=== PATIENT | female | born 1960 | race Caucasian/White ===

== ENCOUNTER 2020-11-23 10:44 | Emergency (ER) | payer MEDICARE ==
[~2020-11-23] VITALS: Ht 167.6 cm; Wt 65.9 kg
--- NOTE | 2020-11-23 10:47 | PHYS DOC ---
Past History Past Medical History: Hypertension, [place] Smoking: Cigarettes Adult General Chief Complaint Chief Complaint: CHEST PAIN HPI HPI Patient is a 60-year-old female presenting for chest pain. This is an ongoing issue. Reports left-sided chest pressure that sometimes radiates to throat. Has history of indigestion but states this feels different. Timing of symptoms is infrequent, no known exacerbation with physical activity or p.o. intake. Reports approximately 1 week ago having increased frequency of said events. States events are self-limiting and usually resolve within minutes to an hour at most. Reports event yesterday took her breath away which concerned her as she has prior LA approximately 10 years ago that did not require any intervention. She is on 81 mg aspirin daily, smokes cigarettes, denies any other family history of early cardiac disease. No fever, chills, hemoptysis or productive cough, abdominal pain, urinary symptoms Review of Systems Review of Systems Fourteen body systems of review of systems have been reviewed. See HPI for pertinent positives and negative responses, other valdez all other systems are negative, non-pertinent or non-contributory Physical Exam Physical Exam Constitutional: Well developed, well nourished, no acute distress, non-toxic appearance. HENT: Normocephalic, atraumatic, bilateral external ears normal, oropharynx moist, no oral exudates, nose normal. Eyes: PERRLA, EOMI, conjunctiva normal, no discharge. Neck: Normal range of motion, no tenderness, supple, no stridor. Cardiovascular: Heart rate regular, sinus rhythm, no murmurs rubs or gallops Lungs & Thorax: Bilateral breath sounds clear to auscultation Abdomen: Bowel sounds normal, soft, no tenderness, no masses, no pulsatile masses. Nonsurgical abdomen, no peritoneal signs Skin: Warm, dry, no erythema, no rash. Back: No tenderness, no CVA tenderness. Extremities: No tenderness, no cyanosis, no clubbing, ROM intact, no edema. Neurologic: Alert and oriented X 3, grossly normal motor & sensory function, no focal deficits noted. Psychologic: Affect normal, judgement normal, mood normal. Current Patient Data Vital Signs Vital Signs Date Time Temp Pulse Resp B/P (MAP) Pulse Ox O2 Delivery O2 Flow Rate FiO2 11/23/20 10:46 98.1 89 19 141/81 (101) 100 Room Air Vital Signs Date Time Temp Pulse Resp B/P (MAP) Pulse Ox O2 Delivery O2 Flow Rate FiO2 11/23/20 10:46 98.1 89 19 141/81 (101) 100 Room Air Lab Results Laboratory Tests Test 11/23/20 10:52 White Blood Count 11.6 x10^3/uL Red Blood Count 4.76 x10^6/uL Hemoglobin 13.9 g/dL Hematocrit 42.4 % Mean Corpuscular Volume 89 fL Mean Corpuscular Hemoglobin 29 pg Mean Corpuscular Hemoglobin Concent 33 g/dL Red Cell Distribution Width 13.0 % Platelet Count 270 x10^3/uL Neutrophils (%) (Auto) 62 % Lymphocytes (%) (Auto) 28 % Monocytes (%) (Auto) 8 % Eosinophils (%) (Auto) 1 % Basophils (%) (Auto) 1 % Neutrophils # (Auto) 7.2 x10^3uL Lymphocytes # (Auto) 3.2 x10^3/uL Monocytes # (Auto) 1.0 x10^3/uL Eosinophils # (Auto) 0.1 x10^3/uL Basophils # (Auto) 0.1 x10^3/uL Sodium Level 139 mmol/L Potassium Level 3.5 mmol/L Chloride Level 102 mmol/L Carbon Dioxide Level 26 mmol/L Anion Gap 11 Blood Urea Nitrogen 14 mg/dL Creatinine 0.8 mg/dL Estimated GFR (Cockcroft-Gault) 73.2 Glucose Level 102 mg/dL Calcium Level 9.3 mg/dL Troponin I Quantitative < 0.017 ng/mL Current Medications Medications (Trade) Dose Ordered Sig/Rekha Route PRN Reason Start Time Stop Time Status Last Admin Dose Admin Aspirin (Aspirin Chewable) 162 mg 1X ONCE PO 11/23/20 11:00 11/23/20 11:15 DC 11/23/20 11:07 EKG EKG EKG ordered and interpreted by myself at 1054 hrs. sinus rhythm at 93 bpm, QTC 460 otherwise unremarkable intervals, no axis deviation, no acute ischemic findings, no STEMI Repeat EKG ordered and interpreted by myself at 1132 hrs. as sinus rhythm at 77 bpm, unremarkable intervals, no axis deviation, no acute ischemic findings Radiology/Procedures Radiology/Procedures AP chest. HISTORY: Chest pain AP view was taken of the chest. There is no prior study for comparison. There is density along the left heart border possibly epicardial fat pad or scarring or atelectasis or infiltrate. Heart is normal in size. There is no pleural effusion. No other infiltrate is noted. PA and lateral views could be of benefit. IMPRESSION: 1. Density along the left heart border from an epicardial fat pad or atelectasis or infiltrate. 2. No other acute infiltrates. Electronically signed by: Sukumar Butts MD (11/23/2020 11:15 AM) [id number] Heart Score C/O Chest Pain: Yes HEART Score for Chest Pain: HEART Score for Chest Pain Response (Comments) Value History Moderately Suspicious 1 ECG Normal 0 Age >45 - < 65 1 Risk Factors >3 Risk Factors or Hx CAD 2 Troponin < Normal Limit 0 Total 4 Risk Factors: Risk Factors: DM, Current or recent (<one month) smoker, HTN, HLP, family history of CAD, obesity. Risk Scores: Risk Factors: DM, Current or recent (<one month) smoker, HTN, HLP, family history of CAD, obesity. Course & Med Decision Making Course & Med Decision Making Hemodynamically stable patient with known history of cardiac disease presenting for chest pain ER work-up grossly unremarkable. With that said, discussed numerous risk factors patient had in addition to heart score. I recommended patient be admitted for cardiac observation Nonetheless, patient declined. She has full capacity at this time. 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 I stressed the need for her to review ER visit today and fact that she declined cardiac observation. She will likely require further provocative cardiac testing in outpatient setting and potentially cardiology referral Strict return precautions discussed with good understanding by patient, all questions and concerns addressed prior to ER departure [place] Disclaimer Dragon Disclaimer This electronic medical record was generated, in whole or in part, using a voice recognition dictation system. Departure Departure: Impression: Primary Impression: Chest pain Additional Impression: Tobacco abuse Disposition: 01 DC HOME SELF CARE/HOMELESS Condition: STABLE Referrals: HIREN COLE MD (PCP) Patient Instructions: Chest Pain Observation Additional Instructions: You were seen for chest pain. Your workup did not show any acute abnormalities today, but does not indicate that you might develop worsening disease and/or symptoms later which is why it was recommended that you stay for cardiac observation overnight. Risks and benefits of staying for continued inpatient care was discussed and you decided to go home. As such, it is vital for you to follow-up with your primary care physician this upcoming Wednesday to review ER visit, the fact that you were recommended cardiac observation, and need for further diagnostic work-up in outpatient setting such as provocative cardiac testing and potentially cardiology referral. You should return to the ED if you develop worsening chest pain, shortness of breath, fever, abnormal sweating, leg swelling, or any other new or concerning symptoms. Problem Qualifiers SIMONE JACKSON DO Nov 23, 2020 10:47
[2020-11-23] MEDS ORDERED: ASPIRIN CHEWABLE 81 MG TABLET. PO ONE (11:00)
--- NOTE | 2020-11-23 11:16 | EKG ---
[address] [address] Test Date: 2020-11-23 Test Time: 10:50:40 Pat Name: MARCELA PINO Department: Room: Gender: F Catering Server: MARSHALL : 1960 Requested By: SIMONE JACKSON Order Number: [id number] Reading MD: Measurements Intervals [place] Rate: 93 P: 90 PA: 130 QRS: 68 QRSD: 90 T: 66 QT: 368 QTc: 460 Interpretive Statements SINUS RHYTHM NORMAL ECG RI6.02 No previous ECG available for comparison
[2020-11-23 11:17] LABS: BASO # 0.1 x10^3/uL (0.0-0.2); BASO % 1 % (0-3); EOS # 0.1 x10^3/uL (0.0-0.7); EOS % 1 % (0-3); HEMATOCRIT 42.4 % (36.0-47.0); HEMOGLOBIN 13.9 g/dL (12.0-15.5); LYMPH # 3.2 x10^3/uL (1.0-4.8); LYMPH % 28 % (24-48); MEAN CORPUSCULAR HEMOGLOBIN 29 pg (25-35); MEAN CORPUSCULAR HGB CONC 33 g/dL (31-37); MEAN CORPUSCULAR VOLUME 89 fL (79-100); MONO % 8 % (0-9); NEUT # 7.2 x10^3uL (1.8-7.7); NEUT % 62 % (31-73); PLATELET COUNT 270 x10^3/uL (140-400); RED BLOOD COUNT 4.76 x10^6/uL (3.50-5.40); WHITE BLOOD COUNT 11.6 x10^3/uL (4.0-11.0)
--- NOTE | 2020-11-23 11:17 | RAD ---
AP chest. HISTORY: Chest pain AP view was taken of the chest. There is no prior study for comparison. There is density along the le ft heart border possibly epicardial fat pad or scarring or atelectasis or infiltrate. Heart is normal in size. There is no pleural effusion. No other infiltrate is noted. PA and lateral views could be o f benefit. IMPRESSION: 1. Density along the left heart border from an epicardial fat pad or atelectasis or infiltrate. 2. No other acute infiltrates. Electronically signed by: Sukumar Butts MD (11/23/2020 11:15 AM) [id number]
[2020-11-23 11:20] LABS: CALCIUM 9.3 mg/dL (8.5-10.1); CREATININE 0.8 mg/dL (0.6-1.0); GFR 73.2; POTASSIUM 3.5 mmol/L (3.5-5.1)
[2020-11-23 11:52] VITALS: BP 139/84
--- NOTE | 2020-11-23 12:44 | EKG ---
[address] [address] Test Date: 2020-11-23 Test Time: 11:31:05 Pat Name: MARCELA PINO Department: Room: Gender: F Lead Mobile Developer: MARSHALL : 1960 Requested By: SIMONE JACKSON Order Number: [id number] Reading MD: Measurements Intervals [place] Rate: 77 P: 30 [place]: 142 QRS: 58 QRSD: 84 T: 66 QT: 400 QTc: 455 Interpretive Statements SINUS RHYTHM NORMAL ECG RI6.02 No previous ECG available for comparison
== END 2020-11-23 12:01 | disposition home or self-care (01) ==
LOC: ER 10:44
DX: R07.89 Other chest pain (principal); I10 Essential (primary) hypertension; I25.2 Old myocardial infarction; F17.210 Nicotine dependence, cigarettes, uncomplicated
CPT/HCPCS: 36415; 71045; 80048; 84484; 85025; 93005; 99285-25

== ENCOUNTER 2021-11-24 23:21 | Emergency (ER) | payer MEDICARE ==
[~2021-11-24] VITALS: Ht 167.6 cm; Wt 65.9 kg
[2021-11-24 23:21] VITALS: BP 134/76
--- NOTE | 2021-11-24 23:59 | PHYS DOC ---
Past History Past Medical History: Hypertension, [place] Past Surgical History: Appendectomy, Hysterectomy, Tonsillectomy Smoking: Cigarettes Alcohol Use: Rarely General Adult EDM: Chief Complaint: COUGH HPI: HPI: 61-year-old female presents with cough, body aches, chest pain. She has had the symptoms for about a week. She feels like they are all getting worse. She has "no energy". She does describe the chest pain as a heavy feeling in the central chest with no radiation. She complains of some shortness of breath. No history of asthma or COPD. She has a history of atrial fibrillation but is not on any treatment at this time. Review of Systems: Review of Systems: Constitutional: Denies fever or chills. Body aches, fatigue Eyes: Denies change in visual acuity HENT: Denies nasal congestion or sore throat Respiratory: Cough with shortness of breath Cardiovascular: Chest pain GI: Denies abdominal pain, nausea, vomiting, bloody stools or diarrhea : Denies dysuria Musculoskeletal: Denies back pain or joint pain Integument: Denies rash Neurologic: Denies headache, focal weakness or sensory changes Endocrine: Denies polyuria or polydipsia Lymphatic: Denies swollen glands Psychiatric: Denies depression or anxiety Allergies: Allergies: Allergies Coded Allergies Type Severity Reaction Last Updated Verified Sulfa (Sulfonamide Antibiotics) Allergy Severe Rash 11/23/20 Yes Physical Exam: PE: Constitutional: Well developed, well nourished, no acute distress, non-toxic appearance. [] HENT: Normocephalic, atraumatic, bilateral external ears normal, oropharynx moist, no oral exudates, nose normal. [] Eyes: PERRLA, EOMI, conjunctiva normal, no discharge. [] Neck: Normal range of motion, no tenderness, supple, no stridor. [] Cardiovascular: Heart rate 89, regular rhythm, no murmur [] Lungs & Thorax: Bilateral breath sounds clear to auscultation [] Abdomen: Bowel sounds normal, soft, no tenderness, no masses, no pulsatile masses. [] Skin: Warm, dry, no erythema, no rash. [] Back: No tenderness, no CVA tenderness. [] Extremities: No tenderness, no cyanosis, no clubbing, ROM intact, no edema. [] Neurologic: Alert and oriented X 3, normal motor function, normal sensory function, no focal deficits noted. [] Psychologic: Affect normal, judgement normal, mood anxious. [] EKG: EKG: [] Radiology/Procedures: Radiology/Procedures: [] Impressions: EXAM: XR CHEST 1V 11/24/2021 11:45 PM CLINICAL INDICATION: Chest pain COMPARISON: Chest radiograph 11/23/2020 TECHNIQUE: AP view of the chest FINDINGS: The heart is normal in size. The lungs are hyperexpanded. There are mild left greater than right opacities. No pleural effusion or pneumothorax. IMPRESSION: Mild left greater than right basilar opacities, could be atelectasis or pneumonia. Electronically signed by: Jackie De La O MD (11/24/2021 11:56 PM) [facility] DICTATED AND SIGNED BY: JACKIE DE LA O MD DATE: 11/24/21 [id number] CC: SALAZAR BENOIT DO; HIREN COLE MD ~ Heart Score: C/O Chest Pain: Yes HEART Score for Chest Pain: HEART Score for Chest Pain Response (Comments) Value History Slighlty/Non-Suspicious 0 ECG Normal 0 Age >45 - < 65 1 Risk Factors 1 or 2 Risk Factors 1 Total 2 Risk Factors: Risk Factors: DM, Current or recent (<one month) smoker, HTN, HLP, family history of CAD, obesity. Risk Scores: Score 0 - 3: 2.5% MACE over next 6 weeks - Discharge Home Score 4 - 6: 20.3% MACE over next 6 weeks - Admit for Clinical Observation Score 7 - 10: 72.7% MACE over next 6 weeks - Early Invasive Strategies Course & Med Decision Making: Course & Med Decision Making Pertinent Labs and Imaging studies reviewed. (See chart for details) The patient's chest x-ray suggested pneumonia. I will treat her with Rocephin and azithromycin in the emergency room and discharge her on azithromycin. The patient's labs significant for some elevated liver enzymes. I am unsure of the significance of these in this context. I have advised that she follow-up on these with her primary physician. CBC is unremarkable. Her influenza and COVID are negative. She is stable for discharge at this time. [] Dragon Disclaimer: Dragon Disclaimer: This electronic medical record was generated, in whole or in part, using a voice recognition dictation system. Departure Departure: Impression: Primary Impression: Pneumonia Disposition: HOME / SELF CARE / HOMELESS Condition: STABLE Referrals: HIREN COLE MD (PCP) Patient Instructions: Pneumonia, Adult, [id number] Scripts Azithromycin (AZITHROMYCIN TABLET) 250 Mg Tablet 250 MG PO DAILY for ANTI-BIOTIC for 4 Days, #4 TAB 0 Refills Prov: SALAZAR BENOIT DO 11/25/21 SALAZAR BENOIT DO Nov 24, 2021 23:59
[2021-11-25] MEDS ORDERED: IV NORMAL SALINE 1,000ML 1,000 ML IV ONE
[2021-11-25] MEDS ORDERED: AZITHROMYCIN 250 MG TABLET. PO ONE (00:15)
[2021-11-25] MEDS ORDERED: cefTRIAXone SODIUM 1 GM VIAL ONE (00:39)
[2021-11-25] MEDS ORDERED: IV NORMAL SALINE 50ML 50 ML ONE (00:39)
[2021-11-25 00:51] LABS: BASO # 0.1 x10^3/uL (0.0-0.2); BASO % 1 % (0-3); EOS # 0.1 x10^3/uL (0.0-0.7); EOS % 1 % (0-3); HEMOGLOBIN 14.9 g/dL (12.0-15.5); LYMPH # 2.8 x10^3/uL (1.0-4.8); LYMPH % 31 % (24-48); MEAN CORPUSCULAR HEMOGLOBIN 30 pg (25-35); MEAN CORPUSCULAR HGB CONC 33 g/dL (31-37); MEAN CORPUSCULAR VOLUME 89 fL (79-100); MONO # 0.6 x10^3/uL (0.0-1.1); MONO % 7 % (0-9); NEUT # 5.4 x10^3uL (1.8-7.7); NEUT % 60 % (31-73); PLATELET COUNT 249 x10^3/uL (140-400); RED BLOOD COUNT 5.03 x10^6/uL (3.50-5.40); RED CELL DISTRIBUTION WIDTH 13.2 % (11.5-14.5); WHITE BLOOD COUNT 8.9 x10^3/uL (4.0-11.0)
[2021-11-25 00:58] LABS: CALCIUM 9.5 mg/dL (8.5-10.1); CREATININE 0.8 mg/dL (0.6-1.0); GFR 72.9; POTASSIUM 4.3 mmol/L (3.5-5.1)
[2021-11-25 01:03] LABS: INFLUENZA A PATIENT NEGATIVE (NEGATIVE); INFLUENZA B PATIENT NEGATIVE (NEGATIVE)
[2021-11-25 01:13] LABS: ALBUMIN 3.2 g/dL (3.4-5.0); ALBUMIN/GLOBULIN RATIO 0.8 (1.0-1.7); TOTAL BILIRUBIN 0.5 mg/dL (0.2-1.0); TOTAL PROTEIN 7.4 g/dL (6.4-8.2)
[2021-11-25] MEDS ORDERED: AZIT250T6 PO (01:22)
--- NOTE | 2021-11-25 03:46 | EKG ---
[address] [address] Test Date: 2021-11-24 Test Time: 23:32:50 Pat Name: MARCELA PINO Department: Room: Gender: F Connection Worker: JOJO : 1960 Requested By: SALAZAR BENOIT Order Number: [id number] Reading MD: Measurements Intervals [place] Rate: 89 P: 50 TN: 142 QRS: 24 QRSD: 76 T: 78 QT: 344 QTc: 420 Interpretive Statements SINUS RHYTHM LOW LIMB LEAD VOLTAGE T ABNORMALITY IN HIGH LATERAL LEADS ABNORMAL ECG RI6.02 No previous ECG available for comparison
== END 2021-11-25 01:28 | disposition home or self-care (01) ==
LOC: ER 23:21
DX: J18.9 Pneumonia, unspecified organism (principal); I10 Essential (primary) hypertension; I25.2 Old myocardial infarction; F17.210 Nicotine dependence, cigarettes, uncomplicated; Z20.822 Contact with and (suspected) exposure to COVID-19; Z88.2 Allergy status to sulfonamides
CPT/HCPCS: 36415; 71045; 80053; 84484; 85025; 87428; 93005; 96365; 99285; J0696; J7030